=== PATIENT | female | born 1995 | race Caucasian/White ===

== ENCOUNTER 2017-09-29 22:42 | Emergency (ER) | payer SELFPAY ==
[~2017-09-29] VITALS: Ht 157.5 cm; Wt 81.8 kg
[2017-09-29] MEDS ORDERED: ALBUTEROL SULFATE 5 MG/ML 20 ML NEB SOLN [BULK] NEB ONE (22:45)
[2017-09-29] MEDS ORDERED: IPRATROPIUM BROMIDE 0.5 MG/2.5 ML NEB SOLUTION NEB ONE (22:45)
[2017-09-29 22:46] VITALS: BP 133/66
[2017-09-29] MEDS ORDERED: BECL8.7A6 IH (22:46)
[2017-09-29] MEDS ORDERED: 0.9% SODIUM CHLORIDE 5 ML NEB SOLUTION NEB ONE (22:49)
[2017-09-30] MEDS ORDERED: PredniSONE 20 MG TABLET PO ONE (02:00)
== END 2017-09-30 02:41 | disposition home or self-care (01) ==
LOC: EMS 22:45
DX: J45.909 Unspecified asthma, uncomplicated (principal); J06.9 Acute upper respiratory infection, unspecified; Z79.899 Other long term (current) drug therapy
CPT/HCPCS: 94644; 99285; J7512; J7611